=== PATIENT | male | born 1950 | race Two or more races ===

== ENCOUNTER 2018-09-01 10:22 | Emergency (ER) | payer OTHER ==
[~2018-09-01] VITALS: Ht 167.6 cm; Wt 70.3 kg
[2018-09-01] MEDS ORDERED: NABUMETONE500 MG (11:00)
[2018-09-01] MEDS ORDERED: LANTUS SOL100 UNIT/1 (11:01)
[2018-09-01] MEDS ORDERED: COZAAR50 MG (11:02)
[2018-09-01] MEDS ORDERED: LEVOTHYROXINE25 MCG (11:02)
[2018-09-01] MEDS ORDERED: GEMFIBROZIL600 MG (11:03)
[2018-09-01] MEDS ORDERED: IRO-PLEX LIQUI120 ML (11:03)
[2018-09-01] MEDS ORDERED: METFORMIN HCL1000 M1 (11:04)
[2018-09-01] MEDS ORDERED: GABAPENTIN800 MG (11:04)
== END 2018-09-01 14:02 | disposition home or self-care (01) ==
LOC: ER 10:22
DX: R42 Dizziness and giddiness (principal); B34.9 Viral infection, unspecified